=== PATIENT | male | born 1975 | race Caucasian/White ===

== ENCOUNTER 2018-07-14 17:59 | Emergency (ER) | payer BC ==
--- NOTE | 2018-07-14 18:33 | EDM.PDOC ---
ED HPI GENERAL MEDICAL PROBLEM - General Chief Complaint: General Stated Complaint: wrist injury Time Seen by Provider: 07/14/18 18:00 Source of Information: Reports: Patient History Limitations: Reports: No Limitations - History of Present Illness INITIAL COMMENTS - FREE TEXT/NARRATIVE: According to patient he woke up yesterday morning and moved his right hand and he felt a pop in his right wrist over the radial aspect.Pt claims he was not doing anything, just felt the pop. 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 He did see his chiropractor and had some manipulation and wrist splint was applied. He is here in the emergency room today, because it still hurts over the radial aspect of the wrist. Hurt with any movement of the right thumb.Pain radiates form the thumb into the lower forearm. no bruising. no other complaints. Onset Date: 07/13/18 Onset Time: 06:00 Location: Reports: Upper Extremity, Right Quality: Reports: Ache Severity: Moderate Improves with: Reports: None Worsens with: Reports: None Associated Symptoms: Denies: Confusion, Chest Pain, Cough, Diaphoresis, Fever/ Chills, Nausea/Vomiting, Rash, Seizure, Shortness of Breath, Syncope, Weakness Treatments MARKETING TECHNOLOGY COORDINATOR: Reports: Other Medication(s) Other Treatments MARKETING TECHNOLOGY COORDINATOR: ultram, advil - Related Data Allergies Allergy/AdvReac Type Severity Reaction Status Date / Time divalproex sodium Allergy Unknown Other Verified 07/14/18 18:07 [From Depakote] lithium Allergy Hallucinati Verified 07/14/18 18:07 ons Home Meds: Home Meds traMADol [Ultram] 50 mg PO Q4HR PRN 07/14/18 [History] ED ROS GENERAL - Review of Systems Review Of Systems: See Below Constitutional: Denies: Fever, Chills HEENT: Denies: Rhinitis, Throat Pain Respiratory: Denies: Cough, Sputum Cardiovascular: Denies: Chest Pain, Lightheadedness GI/Abdominal: Denies: Abdominal Pain, Flatus, Nausea, Vomiting Musculoskeletal: Reports: Hand Pain, Joint Swelling. Denies: Back Pain, Muscle Pain, Muscle Stiffness Skin: Denies: Bruising, Pruritis, Rash Neurological: Denies: Confusion, Dizziness, Headache, Numbness, Tingling ED EXAM, GENERAL - Physical Exam Exam: See Below Exam Limited By: No Limitations General Appearance: Alert, WD/WN, No Apparent Distress Eye Exam: Bilateral Eye: EOMI, PERRL Ears: Normal External Exam, Normal Canal, Hearing Grossly Normal, Normal TMs Ear Exam: Bilateral Ear: Auricle Normal, Canal Normal, TM normal Nose: Normal Inspection, Normal Mucosa, No Blood Throat/Mouth: Normal Inspection, Normal Lips, Normal Teeth, Normal Gums, Normal Oropharynx, Normal Voice, No Airway Compromise Head: Atraumatic, Normocephalic Neck: Normal Inspection, Supple, Non-Tender, Full Range of Motion Respiratory/Chest: No Respiratory Distress, Lungs Clear, Normal Breath Sounds, No Accessory Muscle Use, Chest Non-Tender Cardiovascular: Normal Peripheral Pulses, Regular Rate, Rhythm, No Edema, No Gallop, No JVD, No Murmur, No Rub Extremities: No Pedal Edema, Normal Capillary Refill, Other (Right wrist: there is swelling over the right wrist radial spect. Pt has very limited ROM of the thumb. Tender over the base of the 1st metacarpal.) Neurological: Alert, Oriented Course - Vital Signs Text/Narrative:: Xray right wrist appiah show avulsion fracture of the base f the 1st metacarpal. I have placed patient in the wrist splint with thumb spica to immobilize the wrist and thumb. pt advised to take motrin 600mg 3 times daily. Will try to have patient followup with hand surgeon at [facility]. Will send his information to [facility]. Pt advised not to use the right hand until he is evaluated by hand surgeon and cleared. Last Recorded V/S: Last Vital Signs Temp 96.9 F 07/14/18 18:15 Pulse 76 07/14/18 18:15 Resp BP 135/91 H 07/14/18 18:15 Pulse Ox 100 07/14/18 18:15 - Orders/Labs/Meds Orders: Active Orders 24 hr Category Date Time Status Wrist Comp Min 3V Rt [CR] Stat Exams 07/14/18 18:19 Ordered Departure - Departure Time of Disposition: 18:40 Disposition: Home, Self-Care 01 Condition: Fair Clinical Impression: Avulsion fracture of shaft of metacarpal bone - Discharge Information *PRESCRIPTION DRUG MONITORING PROGRAM REVIEWED*: Not Applicable *COPY OF PRESCRIPTION DRUG MONITORING REPORT IN PATIENT ABIGAIL: Not Applicable Referrals: PCP,None [Primary Care Provider] - Additional Instructions: Xray right wrist appiah show avulsion fracture of the base f the 1st metacarpal. I have placed patient in the wrist splint with thumb spica to immobilize the wrist and thumb. pt advised to take motrin 600mg 3 times daily. Will try to have patient followup with hand surgeon at [facility]. Will send his information to [facility]. Pt advised not to use the right hand until he is evaluated by hand surgeon and cleared. - Problem List & Annotations (1) Avulsion fracture of shaft of metacarpal bone SNOMED Code(s): 02571915 Code(s): S62.329A - DISP FX OF SHAFT OF UNSP METACARPAL BONE, INIT FOR CLOS FX Status: Acute Current Visit: Yes - Problem List Review Problem List Initiated/Reviewed/Updated: Yes - My Orders Last 24 Hours: My Active Orders 07/14/18 18:19 Wrist Comp Min 3V Rt [CR] Stat - Assessment/Plan Last 24 Hours: My Active Orders 07/14/18 18:19 Wrist Comp Min 3V Rt [CR] Stat Assessment:: Avulsion fracture be of first metacarpal Plan: Xray right wrist appiah show avulsion fracture of the base f the 1st metacarpal. I have placed patient in the wrist splint with thumb spica to immobilize the wrist and thumb. pt advised to take motrin 600mg 3 times daily. Will try to have patient followup with hand surgeon at [facility]. Will send his information to [facility]. Pt advised not to use the right hand until he is evaluated by hand surgeon and cleared.
--- NOTE | 2018-07-14 23:48 | CR ---
DATE OF SERVICE: 07/14/18 CLINICAL DATA: Wrist strain. RIGHT WRIST: No acute fracture or dislocation. No lytic or blastic bone lesions. There is a small osseous density just distal to the distal radioulnar articulation, most likely representing a small loose body or old bony avulsion. The exam is otherwise negative. ADDENDUM: The exam is again reviewed. There is a 1 mm osseous density adjacent to the carpometacarpal joint of the thumb consistent with small loose body or bony avulsion. [id number] [facility]
== END 2018-07-14 18:50 | disposition home or self-care (01) ==
LOC: LB.ED 17:59
DX: S62.241A Displaced fracture of shaft of first metacarpal bone, right hand, initial encounter for closed fracture (principal); Z88.8 Allergy status to other drugs, medicaments and biological substances; X50.9XXA Other and unspecified overexertion or strenuous movements or postures, initial encounter
CPT/HCPCS: 29125; 73110-RT; 99283-25

== ENCOUNTER 2018-08-22 19:57 | Emergency (ER) | payer OTHER, BC ==
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
== END 2018-08-22 20:17 | disposition home or self-care (01) ==
LOC: LB.ED 19:57
DX: S00.03XA Contusion of scalp, initial encounter (principal); S09.90XA Unspecified injury of head, initial encounter; Z88.8 Allergy status to other drugs, medicaments and biological substances; Z79.899 Other long term (current) drug therapy; V47.5XXA Car driver injured in collision with fixed or stationary object in traffic accident, initial encounter
CPT/HCPCS: 99283